=== PATIENT | female | born 1990 | race Caucasian/White ===

== ENCOUNTER 2016-12-11 23:23 | Emergency (ER) | payer SELFPAY ==
[2016-12-11] MEDS ORDERED: METHYLPREDNISOLONE SOD SUCC/PF 125 MG/2 ML VIAL ONE (23:34)
[2016-12-11] MEDS ORDERED: METHYLPREDNISOLONE SOD SUCC/PF 125 MG/2 ML VIAL IM ONE (23:34)
--- NOTE | 2016-12-11 23:52 | ERNOTE ---
Allergy Symptoms - ER Presenting Symptoms: skin rash, itching Time Seen by Provider: 12/11/16 23:33 Source: patient Exam Limitations: no limitations Immunizations: IMMUNIZATION HX Immunizations Up to Date No: unsure History of Influenza Vaccine No Hx Pneumococcal Vaccination No Allergies/Adverse Reactions: Allergies amoxicillin Allergy (Intermediate, Verified 12/12/16 00:45) Hives Home Medications: HOME MEDICATIONS predniSONE [Prednisone] 3 tab PO DAILY #15 tab 12/12/16 [Last Taken Unknown] - History of Present Illness Narrative: Patient on Amoxicillin for a sore throat, has hives and itching everywhere. This started about 1500 earlier today. She was placed on Amoxicillin for a throat infection on , she states she did miss a dose. She complains of raised red bumps with intense itching all over her body. Timing: Present: constant, getting worse Treatment [employer]:: none Location skin rash/itching: Present: diffuse Location swelling: Present: none. Absent: face, lip(s), tongue, throat Severity shortness of breath: Present: mild - earlier, that has resolved Severity trouble swallowing/speaking: Absent: mild, moderate, severe Identified cause?: Yes - Amoxicillin Exposure: Present: antibiotic Modifying Factors (Improves): Reports: nothing Modifying Factors (Worsens): Reports: scratching Similar symptoms previously: No Prior Treament: Reports: recently seen, currently on antibiotics Review of Systems - Review of Systems Constitutional: Present: recent illness. Absent: fever, chills, weakness EYE: Present: no symptoms reported ENT: Present: sore throat. Absent: ear pain Respiratory: Absent: shortness of breath, cough, wheezing Cardiology: Absent: chest pain Gastrointestinal/Abdominal: Absent: nausea, vomiting, diarrhea, abdominal pain Genitourinary: Present: no symptoms reported Musculoskeletal: Present: no symptoms reported Skin: Present: rash Neurological: Present: no symptoms reported Endocrine: Present: no symptoms reported Hematologic/Lymphatic: Present: no symptoms reported Psych: Present: no symptoms reported - Patient's Past Medical History Patient History - Medical: No pertinent hx, Anxiety, Depression Patient History - Cardiac/Respiratory: No pertinent hx Patient History - Cancer: No Hx of Cancer Patient History - Other: None LMP (females 10-50): 3 weeks LMP (Calendar): 11/19/16 - Family History Father Family History - Medical: Family History - Cardiac/Respiratory: Pneumonia Mother Family History - Medical: No pertinent hx Family History - Cardiac/Respiratory: No pertinent hx Family History - Cancer: Colon - Social History Living Situations: home Abuse History: No History of abuse Psych History: Hx of Anxiety, Hx of Depression Smoking Status: Never smoker Have you smoked in the past 12 months: No Do you dip or chew tobacco: No Alcohol Use: occasionally Drug Use: none - Immunizations Immunizations Up to Date: No - unsure Hx Pneumococcal Vaccination: No History of Influenza Vaccine: No Physical Exam - Physical Exam General Appearance: Present: wd/wn, alert, mild distress Head Exam: Present: other - raised red bumps Eye Exam: Normal inspection: bilateral, PERRL: bilateral, EOMI: bilateral Ears, Nose, Throat: Present: other - tonsillar erosions Neck: Present: nontender, other - rash Respiratory: Present: no respiratory distress, normal breath sounds, no accessory muscle use Cardiovascular/Chest: Present: regular rate, rhythm, no murmur Gastrointestinal/Abdominal: Present: normal bowel sounds, nontender, nondistended, soft Back Exam: Present: normal range of motion, no CVA tenderness Extremity Exam: Present: non-tender, normal range of motion, no edema Neurological Exam: Present: alert, oriented, normal mood/affect Skin Exam: Present: skin rash - generalized, all extremities and trunk front and back - raised red bumps ED Progress - Vital Signs Patient's Vital Signs:: I have reviewed the patient's vital signs. Vital Signs: Vital Signs 12/11/16 23:26 Temperature 38.4 C H Pulse Rate 99 Respiratory 14 Rate Blood Pressure 135/83 O2 Sat by Pulse 100 Oximetry - Progress/Reassessment Chief Complaint: Allergic Reaction Plan - Plan Plan: Solumedrol 125 mg IM 00:49 Patient doing better, not itching so much. Will discharge home with a work note for 2 days. Counseled patient to stop the Amoxicillin, and to take Benadryl 50 mg by mouth every [address] while taking Benadryl. I will discharge with a script for prednisone for 3 days to help alleviate the rash and itching. Departure Clinical Impression: Allergic reaction caused by a drug Qualifiers: Encounter type: initial encounter Qualified Code(s): T78.40XA - Allergy, unspecified, initial encounter - Departure Disposition: Home self-care Condition: Good Instructions: Drug Rash, Drug Allergy, [id number] Additional Instructions: You may take the Benadryl 50 mg (2 of the 25 mg tabs) every 6 hours as needed for itching. Do NOT take the Benadryl and drive!!! Referrals: Amalia Sumner, [Non Staff Physicians] - (2-3 days, sooner if you worsen) Prescriptions: predniSONE [Prednisone] 3 tab PO DAILY #15 tab
[2016-12-12 01:04] VITALS: BP 121/78
== END 2016-12-12 01:02 | disposition home or self-care (01) ==
LOC: SUPCPDRO 23:23 → ER 23:23
DX: T36.0X5A Adverse effect of penicillins, initial encounter (principal)

== ENCOUNTER 2017-02-03 01:35 | Emergency (ER) | payer SELFPAY ==
[2017-02-03 01:53] LABS: Hematocrit 42.2 % (37.0-47.0); Hemoglobin 14.2 gm/dL (12.5-16.0); Mean Corpuscular Hgb Conc 33.6 g/dl (32-36); Neutrophil % 47.4 % (42-75.0); Platelet Count 206 K/mm3 (150-450); Red Blood Count 4.74 M/mm3 (4.2-5.4); Red Cell Distribution Width 14.8 % (11.5-14.0); White Blood Count 6.3 K/mm3 (4.0-10.5)
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
[2017-02-03 02:07] LABS: Albumin * 3.6 gm/dl (3.4-5.0); Anion Gap 15.6 mmol/L (6.8-13.8); BUN/Creatinine Ratio 10.7 (9.0-21.6); Bilirubin, Total 0.3 mg/dL (0.0-1.1); Ca. Corrected For Albumin 8.4 mg/dL (8.4-10.2); Calcium * 8.4 mg/dL (7.9-10.9); Carbon Dioxide 23.9 mmol/L (24-32.6); Potassium 3.5 mmol/L (3.4-4.6); Total Protein 8.2 gm/dL (6.2-8.2)
[2017-02-03] MEDS ORDERED: DIPHTH,PERTUSS(ACELL),TET VAC 0.5 ML VIAL IM ONE ×2 (03:16→03:17)
[2017-02-03 03:32] VITALS: BP 131/84
== END 2017-02-03 03:31 ==
LOC: ER 01:35
DX: J34.89 Other specified disorders of nose and nasal sinuses (principal); R51 Headache; V48.0XXA Car driver injured in noncollision transport accident in nontraffic accident, initial encounter; Y93.9 Activity, unspecified; Y92.410 Unspecified street and highway as the place of occurrence of the external cause; Z23 Encounter for immunization; S00.81XA Abrasion of other part of head, initial encounter
CPT/HCPCS: 36415; 70450; 72125; 80053; 84703; 85025; 90471; 90715; 99284; G0481